=== PATIENT | male | born 1970 | race Caucasian/White ===

== ENCOUNTER 2023-08-09 11:44 | Outpatient (RCR) | payer MEDICARE, OTHER, SELFPAY | END 2023-08-09 23:59 | disposition home or self-care (01) | LOC: RST 11:44 | PROVIDERS: ATTENDING PHYSICIAN Specialist; FAMILY PHYSICIAN Family Medicine | DX: R47.1 Dysarthria and anarthria (principal) | CPT/HCPCS: 92507; 92523 ==

== ENCOUNTER 2023-09-12 08:48 | Outpatient (RCR) | payer MEDICARE, OTHER, SELFPAY | END 2023-09-12 13:10 | disposition home or self-care (01) | LOC: RST 08:48 | PROVIDERS: ATTENDING PHYSICIAN Specialist; FAMILY PHYSICIAN Family Medicine | DX: R47.1 Dysarthria and anarthria (principal) | CPT/HCPCS: 92507 ==